=== PATIENT | female | born 1965 | race Caucasian/White ===

== ENCOUNTER 2016-09-30 23:14 | Emergency (ER) | payer OTHER ==
--- NOTE | 2016-10-01 01:02 | ED NURSING NOTES ---
Clinical Report - Nurses [facility] [address] [place] [address] 09/30/2016 23:15 [id number] Triage time 23:41 Sep 30 2016. Acuity: LEVEL 4. Chief Complaint: CAT BITE. Alert. No acute distress. OCOPER COMA SCORE: Cooper Coma Scale: 15- eyes open spontaneously (4); best verbal response- oriented x 4 (5); best motor response- obeys commands (6). --23:48 Brooke Cameron R.N. 23:41 09/30/16. BP: 150/74. HR: 82. RR: 18. O2 saturation: 99%. Temp: 98.2 F. Pain level now 4/10. --23:48 Brooke Cameron R.N. Weight: 108.8 kg stated. Height/Length: 67 inches Per Patient. BMI: 37.6. --23:41 Brooke Cameron R.N. Medications Cholesterol Defense Oral (at night). Percocet Oral. --23:43 Brooke Cameron R.N. Lisinopril Oral 40 mg, daily. --23:45 Brooke Cameron R.N. BP med at night. --23:46 Brooke Cameron R.N. Nortriptyline HCl Oral 100mg at night. --23:46 Brooke Cameron R.N. Medication/allergy information source: the patient. --23:48 Brooke Cameron R.N. Allergies Wellbutrin.(itching) (inside of mouth) --23:43 Brooke Cameron R.N. Gabapentin. (intolerance maybe, slept for 24 hours and was "out of it") --23:43 Brooke Cameron R.N. History Arrived by private vehicle. Historian: patient. Primary physician (Tony Cervantes). ( Cat Bite to Right Hand OPS MANAGER. Pt washed it out with water. This is the patients own cat.). Location of injuries: right hand. This occurred just prior to arrival. Circumstances: This was an "unprovoked" attack. The appearance of the animal is unknown and the animal reportedly is up to date on immunizations. Treatment OPS MANAGER: None. PAST MEDICAL HX: Tetanus status: up-to-date. Denies current . SOCIAL HX: Current every day heavy tobacco smoker (cigarette)- 1 pack per day. Occasional alcohol use. History of drug use: marijuana. No infectious disease exposure. FALL RISK ASSESSMENT: Fall risk assessment completed. No fall risk identified. NUTRITIONAL RISK ASSESSMENT: The nutritional risk assessment revealed no deficiencies. FUNCTIONAL ASSESSMENT: Functional assessment: no impairments noted. LEARNING NEEDS ASSESSMENT: The learning needs assessment revealed no barriers. SKIN INTEGRITY ASSESSMENT: Skin integrity risk assessment completed. No skin integrity risk identified. --23:48 Brooke Cameron R.N. PROBLEMS: Soft Tissue Foreign Body. Hypertension. Tetanus Status. --23:46 Brooke Cameron R.N. ADDITIONAL SURGERIES: Back Surgery. Hip Surgery. --23:46 Brooke Cameron R.N. Interventions ID band on patient. To room. --23:48 Brooke Cameron R.N. PHYSICAL ASSESSMENT Ambulatory to room. GENERAL / NEURO / PSYCH: Oriented X 4. Appears in no acute distress. RESPIRATORY: Respirations not labored. SKIN: ( multiple small bites to the right thumb and index finger area and the webbing in between the fingers of this area.). --00:56 Brooke Cameron R.N. NURSING PROGRESS NOTES Patient ready for evaluation- chart flagged and ED physician notified. --23:48 Brooke Cameron R.N. 00:09 10/01/2016 Unasyn 1.5GM IM 1.5 gm given. Given in the right deltoid and left deltoid (split dose). --00:09 Brooke Cameron R.N. Wound cleansed with Hibiclens. Applied bulky dressing, following the application of antibiotic ointment (bacitracin). Secured with tape. --00:56 Brooke Cameron R.N. The patient has had no adverse reaction. --01:13 Brooke Cameron R.N. DISPOSITION / DISCHARGE 00:56 10/01/16. BP: 143/71. HR: 77. RR: 18. O2 saturation: 98%. Pain level now 11/26. --00:57 Brooke Cameron R.N. Condition at departure: improved and stable. No learning barriers present. Discharge instructions provided and reviewed with the patient. The patient was discharged by the physician. She was discharged home and accompanied by family. She left the Emergency Department ambulatory and via private vehicle. Family member driving. --01:13 Brooke Cameron R.N. Departure time: 01:13 Oct 01 2016. --01:13 Brooke Cameron R.N. Locked/Released at 10/01/2016 1:13 by Brooke Cameron R.N.
--- NOTE | 2016-10-01 01:02 | ED CLINICAL REPORT ---
Clinical Report - Physicians/Mid Levels [facility] [address] [place] [address] 09/30/2016 23:15 Patient: KATY GUPTA Time Seen: 23:37; initial patient contact. Arrived- By private vehicle. Historian- patient. HISTORY OF PRESENT ILLNESS Chief Complaint: CAT BITE. Location of injuries- left hand. The injury occurred just prior to arrival. The animal reportedly appeared well, is up to date on immunizations and can be observed for ten days. Occurred at home. This was a "provoked" attack. The patient has had swelling. She has not had drainage. REVIEW OF SYSTEMS The patient has had swelling. No numbness. All systems otherwise negative, except as recorded above. PAST HISTORY Soft Tissue Foreign Body. Hypertension. ADDITIONAL SURGERIES: Back Surgery. Hip Surgery. Medications: Nortriptyline HCl Oral 100mg at night. BP med at night. Lisinopril Oral 40 mg, daily. Cholesterol Defense Oral (at night). Percocet Oral. Allergies: Gabapentin. (intolerance maybe, slept for 24 hours and was "out of it") Wellbutrin.(itching) (inside of mouth). SOCIAL HISTORY Current every day smoker. Occasional alcohol use. History of drug use: marijuana. PHYSICAL EXAM Appearance: Alert. Oriented X3. No acute distress. Head: Head normal on inspection. Eyes: Eyes normal inspection. CVS: Heart sounds normal. Respiratory: No respiratory distress. Breath sounds normal. Skin: Skin warm and dry. Normal skin color. Extremities: Dorsal left hand: mild erythema, tenderness and swelling and multiple puncture wounds of the central and radial aspect of the dorsal hand. Neurovascular intact distally. No limitation of extension. PROGRESS AND PROCEDURES Disposition: Discharged home in good and improved condition. CLINICAL IMPRESSION Single deep cat bite to the left hand. INSTRUCTIONS Warnings: INFECTION: Watch for signs of infection (increasing heat and redness, pus-like drainage, swelling, or increased pain). Return or see your doctor if these signs occur. TETANUS: You were given a tetanus shot during your visit. Make a note for future reference. Your Current Medications: CONTINUE TAKING THE FOLLOWING MEDICATIONS: BP med at night*. Cholesterol Defense Oral : at night. Lisinopril Oral : 40 mg daily. Nortriptyline HCl Oral : 100mg at night. Percocet Oral. Prescription Medications: Augmentin 875 mg: take 1 tablet orally every 12 hours for 7 days. Substitution is permissible. Follow-up: Follow up with your doctor in about two days. Call for an appointment. Blood pressure screening was not performed during this visit because the patient has an active diagnosis of hypertension. The patient should follow up with a primary care provider for blood pressure management. (Electronically signed by Ady Albarado Dr. 10/01/2016 1:04)
--- NOTE | 2016-10-01 01:02 | ED NURSING NOTES ---
Clinical Report - Nurses [facility] [address] [place] [address] 09/30/2016 23:15 [id number] TRI[facility] Triage time 23:41 Sep 30 2016. Acuity: LEVEL 4. Chief Complaint: CAT BITE. Alert. No acute distress. COOPER COMA SCORE: Cooper Coma Scale: 15- eyes open spontaneously (4); best verbal response- oriented x 4 (5); best motor response- obeys commands (6). --23:48 Brooke Cameron R.N. 23:41 09/30/16. BP: 150/74. HR: 82. RR: 18. O2 saturation: 99%. Temp: 98.2 F. Pain level now 4/10. --23:48 Brooke Cameron R.N. Weight: 108.8 kg stated. Height/Length: 67 inches Per Patient. BMI: 37.6. --23:41 Brooke Cameron R.N. Medications Cholesterol Defense Oral (at night). Percocet Oral. --23:43 Brooke Cameron R.N. Lisinopril Oral 40 mg, daily. --23:45 Brooke Cameron R.N. BP med at night. --23:46 Brooke Cameron R.N. Nortriptyline HCl Oral 100mg at night. --23:46 Brooke Cameron R.N. Medication/allergy information source: the patient. --23:48 Brooke Cameron R.N. Allergies Wellbutrin.(itching) (inside of mouth) --23:43 Brooke Cameron R.N. Gabapentin. (intolerance maybe, slept for 24 hours and was "out of it") --23:43 Brooke Cameron R.N. History Arrived by private vehicle. Historian: patient. Primary physician (Tony Cervantes). ( Cat Bite to Right Hand SELLING MANAGER. Pt washed it out with water. This is the patients own cat.). Location of injuries: right hand. This occurred just prior to arrival. Circumstances: This was an "unprovoked" attack. The appearance of the animal is unknown and the animal reportedly is up to date on immunizations. Treatment SELLING MANAGER: None. PAST MEDICAL HX: Tetanus status: up-to-date. Denies current . SOCIAL HX: Current every day heavy tobacco smoker (cigarette)- 1 pack per day. Occasional alcohol use. History of drug use: marijuana. No infectious disease exposure. FALL RISK ASSESSMENT: Fall risk assessment completed. No fall risk identified. NUTRITIONAL RISK ASSESSMENT: The nutritional risk assessment revealed no deficiencies. FUNCTIONAL ASSESSMENT: Functional assessment: no impairments noted. LEARNING NEEDS ASSESSMENT: The learning needs assessment revealed no barriers. SKIN INTEGRITY ASSESSMENT: Skin integrity risk assessment completed. No skin integrity risk identified. --23:48 Brooke Cameron R.N. PROBLEMS: Soft Tissue Foreign Body. Hypertension. Tetanus Status. --23:46 Brooke Cameron R.N. ADDITIONAL SURGERIES: Back Surgery. Hip Surgery. --23:46 Brooke Cameron R.N. Interventions ID band on patient. To room. --23:48 Brooke Cameron R.N. PHYSICAL ASSESSMENT Ambulatory to room. GENERAL / NEURO / PSYCH: Oriented X 4. Appears in no acute distress. RESPIRATORY: Respirations not labored. SKIN: ( multiple small bites to the right thumb and index finger area and the webbing in between the fingers of this area.). --00:56 Brooke Cameron R.N. NURSING PROGRESS NOTES Patient ready for evaluation- chart flagged and ED physician notified. --23:48 Brooke Cameron R.N. 00:09 10/01/2016 Unasyn 1.5GM IM 1.5 gm given. Given in the right deltoid and left deltoid (split dose). --00:09 Brooke Cameron R.N. Wound cleansed with Hibiclens. Applied bulky dressing, following the application of antibiotic ointment (bacitracin). Secured with tape. --00:56 Brooke Cameron R.N. The patient has had no adverse reaction. --01:13 Brooke Cameron R.N. DISPOSITION / DISCHARGE 00:56 10/01/16. BP: 143/71. HR: 77. RR: 18. O2 saturation: 98%. Pain level now 11/26. --00:57 Brooke Cameron R.N. Condition at departure: improved and stable. No learning barriers present. Discharge instructions provided and reviewed with the patient. The patient was discharged by the physician. She was discharged home and accompanied by family. She left the Emergency Department ambulatory and via private vehicle. Family member driving. --01:13 Brooke Cameron R.N. Departure time: 01:13 Oct 01 2016. --01:13 Brooke Cameron R.N. Locked/Released at 10/01/2016 1:13 by Brooke Cameron R.N.
--- NOTE | 2016-10-01 01:02 | ED CLINICAL REPORT ---
Clinical Report - Physicians/Mid Levels [facility] [address] [place] [address] 09/30/2016 23:15 Patient: KATY GUPTA Time Seen: 23:37; initial patient contact. Arrived- By private vehicle. Historian- patient. HISTORY OF PRESENT ILLNESS Chief Complaint: CAT BITE. Location of injuries- left hand. The injury occurred just prior to arrival. The animal reportedly appeared well, is up to date on immunizations and can be observed for ten days. Occurred at home. This was a "provoked" attack. The patient has had swelling. She has not had drainage. REVIEW OF SYSTEMS The patient has had swelling. No numbness. All systems otherwise negative, except as recorded above. PAST HISTORY Soft Tissue Foreign Body. Hypertension. ADDITIONAL SURGERIES: Back Surgery. Hip Surgery. Medications: Nortriptyline HCl Oral 100mg at night. BP med at night. Lisinopril Oral 40 mg, daily. Cholesterol Defense Oral (at night). Percocet Oral. Allergies: Gabapentin. (intolerance maybe, slept for 24 hours and was "out of it") Wellbutrin.(itching) (inside of mouth). SOCIAL HISTORY Current every day smoker. Occasional alcohol use. History of drug use: marijuana. PHYSICAL EXAM Appearance: Alert. Oriented X3. No acute distress. Head: Head normal on inspection. Eyes: Eyes normal inspection. CVS: Heart sounds normal. Respiratory: No respiratory distress. Breath sounds normal. Skin: Skin warm and dry. Normal skin color. Extremities: Dorsal left hand: mild erythema, tenderness and swelling and multiple puncture wounds of the central and radial aspect of the dorsal hand. Neurovascular intact distally. No limitation of extension. PROGRESS AND PROCEDURES Disposition: Discharged home in good and improved condition. CLINICAL IMPRESSION Single deep cat bite to the left hand. INSTRUCTIONS Warnings: INFECTION: Watch for signs of infection (increasing heat and redness, pus-like drainage, swelling, or increased pain). Return or see your doctor if these signs occur. TETANUS: You were given a tetanus shot during your visit. Make a note for future reference. Your Current Medications: CONTINUE TAKING THE FOLLOWING MEDICATIONS: BP med at night*. Cholesterol Defense Oral : at night. Lisinopril Oral : 40 mg daily. Nortriptyline HCl Oral : 100mg at night. Percocet Oral. Prescription Medications: Augmentin 875 mg: take 1 tablet orally every 12 hours for 7 days. Substitution is permissible. Follow-up: Follow up with your doctor in about two days. Call for an appointment. Blood pressure screening was not performed during this visit because the patient has an active diagnosis of hypertension. The patient should follow up with a primary care provider for blood pressure management. (Electronically signed by Ady Albarado Dr. 10/01/2016 1:04)
--- NOTE | 2016-10-01 01:03 | ED ORDER SUMMARY ---
..... Patient: KATY GUPTA OrderSheet [facility] VisitID: [id number] [address] [place] [address] 51y, F Registration Date/Time: 09/30/2016 ORDER SHEET Weight: 108.8 kg (stated) Allergies: Wellbutrin, Gabapentin GENERAL ORDERS: MEDICATION ORDERS: - (Unasyn 1.5 grams IM x 1 now) (23:53 09/30/2016 Leroy Lan) (0:09 Ruslan Lara) IV FLUIDS: ORDER SHEET NOTES: [Electronically signed by Ady Albarado Dr. (01:04 10/01/2016)] [Electronically signed by Brooke Cameron R.N. (01:10/01/2016)] [Electronically locked/signed by Brooke Cameron R.N. (01:10/01/2016)]
--- NOTE | 2016-10-01 01:03 | ED ORDER SUMMARY ---
..... Patient: KATY GUPTA OrderSheet [facility] VisitID: [id number] [address] [place] [address] 51y, F Registration Date/Time: 09/30/2016 ORDER SHEET Weight: 108.8 kg (stated) Allergies: Wellbutrin, Gabapentin GENERAL ORDERS: MEDICATION ORDERS: - (Unasyn 1.5 grams IM x 1 now) (23:53 09/30/2016 Leroy Lan) (0:09 Ruslan Lara) IV FLUIDS: ORDER SHEET NOTES: [Electronically signed by Ady Albarado Dr. (01:04 10/01/2016)] [Electronically signed by Brooke Cameron R.N. (01:10/01/2016)] [Electronically locked/signed by Brooke Cameron R.N. (01:10/01/2016)]
--- NOTE | 2016-10-01 01:14 | ED MAR SUMMARY ---
..... Medication Administration Record [facility] [address] [place] [address] Patient: KATY GUPTA Visit ID: [id number] 51y, F Weight: 108.8 kg Height/Length: 67 in BMI: 37.6 ALLERGIES: Gabapentin, Wellbutrin Given 00:09 10/01/2016 Brooke Cameron R.N. Medication Administered: UNASYN 1.5GM [IM], Dose: 1.5 gm IM. Medication Ordered: - (Unasyn 1.5 grams IM x 1 now).
--- NOTE | 2016-10-01 01:14 | ED MAR SUMMARY ---
..... Medication Administration Record [facility] [address] [place] [address] Patient: KATY GUPTA Visit ID: [id number] 51y, F Weight: 108.8 kg Height/Length: 67 in BMI: 37.6 ALLERGIES: Gabapentin, Wellbutrin Given 00:09 10/01/2016 Brooke Cameron R.N. Medication Administered: UNASYN 1.5GM [IM], Dose: 1.5 gm IM. Medication Ordered: - (Unasyn 1.5 grams IM x 1 now).
--- NOTE | 2016-10-01 01:14 | ED MED RECONCILIATION SUMMARY ---
Patient: KATY GUPTA Medication Reconciliation Report [facility] VisitID: [id number] [address] [place] [address] 51y, F Registration Date/Time: 09/30/2016 Weight: 108.8 kg Height/Length: 67 in. BMI: 37.6 ALLERGIES: Gabapentin, Wellbutrin The patient's Home Medications are listed below: CONTINUE TAKING THE FOLLOWING MEDICATIONS: BP med at night Cholesterol Defense Oral, at night Lisinopril Oral 40 mg, daily Nortriptyline HCl Oral 100mg at night Percocet Oral The source(s) of the original Home Medication information: patient The following Medications were given to the patient in the Emergency Department: Unasyn 1.5GM [IM] IM 1.5 gm, administered: 10/01/2016 12:09:00 AM The following Medications were prescribed to the patient: Augmentin 875 mg: take 1 tablet orally every 12 hours for 7 days. Substitution is permissible. -- dAy Albarado Dr.
--- NOTE | 2016-10-01 01:14 | ED MED RECONCILIATION SUMMARY ---
Patient: KATY GUPTA Medication Reconciliation Report [facility] VisitID: [id number] [address] [place] [address] 51y, F Registration Date/Time: 09/30/2016 Weight: 108.8 kg Height/Length: 67 in. BMI: 37.6 ALLERGIES: Gabapentin, Wellbutrin The patient's Home Medications are listed below: CONTINUE TAKING THE FOLLOWING MEDICATIONS: BP med at night Cholesterol Defense Oral, at night Lisinopril Oral 40 mg, daily Nortriptyline HCl Oral 100mg at night Percocet Oral The source(s) of the original Home Medication information: patient The following Medications were given to the patient in the Emergency Department: Unasyn 1.5GM [IM] IM 1.5 gm, administered: 10/01/2016 12:09:00 AM The following Medications were prescribed to the patient: Augmentin 875 mg: take 1 tablet orally every 12 hours for 7 days. Substitution is permissible. -- Ady Albarado Dr.
--- NOTE | 2016-10-01 01:14 | ED DISCHARGE INSTRUCTIONS ---
Patient: AKTY GUPTA General Instructions [facility] VisitID: [id number] [place] [address] 51y, F Registration Date/Time: 09/30/2016 Single deep cat bite to the left hand. INSTRUCTIONS Warnings: INFECTION: Watch for signs of infection (increasing heat and redness, pus-like drainage, swelling, or increased pain). Return or see your doctor if these signs occur. TETANUS: You were given a tetanus shot during your visit. Make a note for future reference. Your Current Medications: CONTINUE TAKING THE FOLLOWING MEDICATIONS: BP med at night*. Cholesterol Defense Oral : at night. Lisinopril Oral : 40 mg daily. Nortriptyline HCl Oral : 100mg at night. Percocet Oral. Prescription Medications: Augmentin 875 mg: take 1 tablet orally every 12 hours for 7 days. Substitution is permissible. Follow-up: Follow up with your doctor in about two days. Call for an appointment. Blood pressure screening was not performed during this visit because the patient has an active diagnosis of hypertension. The patient should follow up with a primary care provider for blood pressure management. ADDITIONAL INFORMATION Animal Bite, General If you have been bitten by an animal and the wound is deep enough to break the skin, an infection may occur. Therefore, watch for the warning signs listed below. If a cut (laceration) was present, the doctor may not close the wound completely. This is to allow fluid to drain in the event of an infection. Home Care: Watch the wound for signs of infection listed below which may begin within6 hours after the bite and progress rapidly. In certain types of bites, antibiotics may be prescribed. Begin taking these as soon as possible until they are all gone. Rabies Prevention If you live in an area where rabies occurs in the wild animals, if you were bitten by a dog, cat, skunk, raccoon, pelayo, coyote, bobcat, woodchuck, bat, or other meat-eating animal, there may be some risk to you of getting the rabies virus. If a healthy-looking pet dog or cat has bitten you, it should be kept in a secure area for the next 10 days to watch for signs of illness. (If the pet nurses medical assistants phlebotomists wont cooperate with you, contact the animal control department.) If the dog or cat becomes ill or dies during that time, contact your [facility] animal control department at once so the animal may be tested for rabies. If the pet stays healthy for the next10 days, there is no danger of rabies in the animal or you. Pets fully vaccinated against rabies (2 shots) are at very low risk of infection; however, because human rabies is almost always fatal,any biting pet should be confined for10 days as an extra precaution. If astray pet bit you, contact the animal control department. They can provide information on capture, quarantine, and animal rabies testing. If you are unable to locate the animal that bit you in the next2 days, and if rabies exists in your region, you must be evaluated for the rabies vaccine series. Contact your doctor or return here promptly. All animal bites should be reported to the [facility] animal control department. If you were not given a form to fill out, you can report this yourself. Follow Up with your doctor or this facility as directed. Most skin wounds heal [id number] days. However, an infection may occur even with proper treatment. Check your wound every 6 hours for the first 2 days, then at least once a day for the next several days for the signs of infection listed below. Get Prompt Medical Attention if any of the following occur: Signs of infection: Spreading redness from the wound Increased pain or swelling Fever of 100.4F (38C) or higher, or as directed by your healthcare provider Colored fluid or pus draining from the wound Headache, confusion, strange behavior, or seizure (signs of a rabies infection) Cat Bite If a cat has bitten you and the wound is deep enough to break the skin, an infection may occur. Therefore, watch for the warning signs listed below. The doctor may not close the wound completely. This allows fluid to drain in the event of an infection. Home Care Watch the wound for signs of infection listed below, which may begin within6 hours after the bite and progress rapidly. If antibiotics were prescribed, begin taking them as soon as possible. Take these as directed until they are all gone. Rabies Prevention If you live in an area where rabies occurs in wild animals, the rabies virus can be passed to cats and dogs. An infected animal can pass the virus to you during a bite. If ahealthy-looking pet cat has bitten you, it should be kept in a secure area for the next 10 days to watch for signs of illness. If the pets nurses medical assistants phlebotomists wont cooperate with you, contact the [facility] animal control department (or local law enforcement). If the animal becomes ill or dies within 10 days, contact your [facility] animal control department at once. The animal must be tested for rabies. If the animal stays healthy for the next10 days, then there is no danger of rabies in the cat or you. Pets fully vaccinated against rabies (2 shots) are at very low risk for the infection. However, because human rabies is usually fatal, any biting pet cat should be confined for 10 days as an extra precaution. If a stray cat has bitten you, contact the [facility] They can provide information on capture, quarantine, and animal rabies testing. If you are unable to locate the animal that bit you in the next2 days, you must be evaluated for the rabies vaccination series within 3days after the bite. Contact your doctor or return to this facility promptly, to arrange this. All animal bites should be reported to your [facility] animal control department. If you were not given a form to fill out, call the [facility] animal control department to report it yourself. Follow Up with your doctor or this facility as directed. Most skin wounds heal within 10 days. However, an infection may occur even with proper treatment. Check your wound every 6 hours for the first 2 days, then at least once a day for the next few days for the signs of infection listed below. Get Prompt Medical Attention if any of the following occur: Signs of infection: Spreading redness Increased pain or swelling Fever of 100.4F (37C) or higher, or as directed by your healthcare provider Colored fluid or pus draining from the wound The biting animal becomes sick or dies Headache, confusion, strange behavior, or a seizure (signs of a rabies infection) Amoxicillin Trihydrate, Clavulanate Potassium Oral tablet What is this medicine? AMOXICILLIN; CLAVULANIC ACID (a mox i CHRISTINA in; HARI tsang ic id) is a penicillin antibiotic. It is used to treat certain kinds of bacterial infections. It will not work for colds, flu, or other viral infections. How should I use this medicine? Take this medicine by mouth with a full glass of water. Follow the directions on the prescription label. Take at the start of a meal. Do not crush or chew. If the tablet has a score line, you may cut it in half at the score line for easier swallowing. Take your medicine at regular intervals. Do not take your medicine more often than directed. Take all of your medicine as directed even if you think you are better. Do not skip doses or stop your medicine early. Talk to your insole presser regarding the use of this medicine in children. Special care may be needed. What side effects may I notice from receiving this medicine? Side effects that you should report to your doctor or health care transitions manager as soon as possible: allergic reactions like skin rash, itching or hives, swelling of the face, lips, or tongue breathing problems dark urine fever or chills, sore throat redness, blistering, peeling or loosening of the skin, including inside the mouth seizures trouble passing urine or change in the amount of urine unusual bleeding, bruising unusually weak or tired white patches or sores in the mouth or throat Side effects that usually do not require medical attention (report to your doctor or health care transitions manager if they continue or are bothersome): diarrhea dizziness headache nausea, vomiting stomach upset vaginal or anal irritation What may interact with this medicine? allopurinol anticoagulants control pills methotrexate probenecid What if I miss a dose? If you miss a dose, take it as soon as you can. If it is almost time for your next dose, take only that dose. Do not take double or extra doses. Where should I keep my medicine? Keep out of the reach of children. Store at room temperature below 25 degrees C (77 degrees F). Keep container tightly closed. Throw away any unused medicine after the expiration date. What should I tell my health care provider before I take this medicine? They need to know if you have any of these conditions: bowel disease, like colitis kidney disease liver disease mononucleosis an unusual or allergic reaction to amoxicillin, penicillin, cephalosporin, other antibiotics, clavulanic acid, other medicines, foods, dyes, or preservatives or trying to get breast-feeding What should I watch for while using this medicine? Tell your doctor or health care transitions manager if your symptoms do not improve. Do not treat diarrhea with over the counter products. Contact your doctor if you have diarrhea that lasts more than 2 days or if it is severe and watery. If you have diabetes, you may get a false-positive result for sugar in your urine. Check with your doctor or health care transitions manager. control pills may not work properly while you are taking this medicine. Talk to your doctor about using an extra method of control. You have been given the following additional information: Animal Bite, General Cat Bite Amoxicillin Trihydrate, Clavulanate Potassium Oral tablet (Electronically signed by Ady Albarado Dr. 10/01/2016 1:04)
--- NOTE | 2016-10-01 01:14 | ED DISCHARGE INSTRUCTIONS ---
Patient: KATY GUPTA General Instructions [facility] VisitID: [id number] [place] [address] 51y, F Registration Date/Time: 09/30/2016 Single deep cat bite to the left hand. INSTRUCTIONS Warnings: INFECTION: Watch for signs of infection (increasing heat and redness, pus-like drainage, swelling, or increased pain). Return or see your doctor if these signs occur. TETANUS: You were given a tetanus shot during your visit. Make a note for future reference. Your Current Medications: CONTINUE TAKING THE FOLLOWING MEDICATIONS: BP med at night*. Cholesterol Defense Oral : at night. Lisinopril Oral : 40 mg daily. Nortriptyline HCl Oral : 100mg at night. Percocet Oral. Prescription Medications: Augmentin 875 mg: take 1 tablet orally every 12 hours for 7 days. Substitution is permissible. Follow-up: Follow up with your doctor in about two days. Call for an appointment. Blood pressure screening was not performed during this visit because the patient has an active diagnosis of hypertension. The patient should follow up with a primary care provider for blood pressure management. ADDITIONAL INFORMATION Animal Bite, General If you have been bitten by an animal and the wound is deep enough to break the skin, an infection may occur. Therefore, watch for the warning signs listed below. If a cut (laceration) was present, the doctor may not close the wound completely. This is to allow fluid to drain in the event of an infection. Home Care: Watch the wound for signs of infection listed below which may begin within6 hours after the bite and progress rapidly. In certain types of bites, antibiotics may be prescribed. Begin taking these as soon as possible until they are all gone. Rabies Prevention If you live in an area where rabies occurs in the wild animals, if you were bitten by a dog, cat, skunk, raccoon, pelayo, coyote, bobcat, woodchuck, bat, or other meat-eating animal, there may be some risk to you of getting the rabies virus. If a healthy-looking pet dog or cat has bitten you, it should be kept in a secure area for the next 10 days to watch for signs of illness. (If the pet linotype mechanic wont cooperate with you, contact the animal control department.) If the dog or cat becomes ill or dies during that time, contact your [facility] animal control department at once so the animal may be tested for rabies. If the pet stays healthy for the next10 days, there is no danger of rabies in the animal or you. Pets fully vaccinated against rabies (2 shots) are at very low risk of infection; however, because human rabies is almost always fatal,any biting pet should be confined for10 days as an extra precaution. If astray pet bit you, contact the animal control department. They can provide information on capture, quarantine, and animal rabies testing. If you are unable to locate the animal that bit you in the next2 days, and if rabies exists in your region, you must be evaluated for the rabies vaccine series. Contact your doctor or return here promptly. All animal bites should be reported to the [facility] animal control department. If you were not given a form to fill out, you can report this yourself. Follow Up with your doctor or this facility as directed. Most skin wounds heal [id number] days. However, an infection may occur even with proper treatment. Check your wound every 6 hours for the first 2 days, then at least once a day for the next several days for the signs of infection listed below. Get Prompt Medical Attention if any of the following occur: Signs of infection: Spreading redness from the wound Increased pain or swelling Fever of 100.4F (38C) or higher, or as directed by your healthcare provider Colored fluid or pus draining from the wound Headache, confusion, strange behavior, or seizure (signs of a rabies infection) Cat Bite If a cat has bitten you and the wound is deep enough to break the skin, an infection may occur. Therefore, watch for the warning signs listed below. The doctor may not close the wound completely. This allows fluid to drain in the event of an infection. Home Care Watch the wound for signs of infection listed below, which may begin within6 hours after the bite and progress rapidly. If antibiotics were prescribed, begin taking them as soon as possible. Take these as directed until they are all gone. Rabies Prevention If you live in an area where rabies occurs in wild animals, the rabies virus can be passed to cats and dogs. An infected animal can pass the virus to you during a bite. If ahealthy-looking pet cat has bitten you, it should be kept in a secure area for the next 10 days to watch for signs of illness. If the pets linotype mechanic wont cooperate with you, contact the [facility] animal control department (or local law enforcement). If the animal becomes ill or dies within 10 days, contact your [facility] animal control department at once. The animal must be tested for rabies. If the animal stays healthy for the next10 days, then there is no danger of rabies in the cat or you. Pets fully vaccinated against rabies (2 shots) are at very low risk for the infection. However, because human rabies is usually fatal, any biting pet cat should be confined for 10 days as an extra precaution. If a stray cat has bitten you, contact the [facility]. They can provide information on capture, quarantine, and animal rabies testing. If you are unable to locate the animal that bit you in the next2 days, you must be evaluated for the rabies vaccination series within 3days after the bite. Contact your doctor or return to this facility promptly, to arrange this. All animal bites should be reported to your [facility] animal control department. If you were not given a form to fill out, call the [facility] animal control department to report it yourself. Follow Up with your doctor or this facility as directed. Most skin wounds heal within 10 days. However, an infection may occur even with proper treatment. Check your wound every 6 hours for the first 2 days, then at least once a day for the next few days for the signs of infection listed below. Get Prompt Medical Attention if any of the following occur: Signs of infection: Spreading redness Increased pain or swelling Fever of 100.4F (37C) or higher, or as directed by your healthcare provider Colored fluid or pus draining from the wound The biting animal becomes sick or dies Headache, confusion, strange behavior, or a seizure (signs of a rabies infection) Amoxicillin Trihydrate, Clavulanate Potassium Oral tablet What is this medicine? AMOXICILLIN; CLAVULANIC ACID (a mox i CHRISTINA in; HARI tsang ic id) is a penicillin antibiotic. It is used to treat certain kinds of bacterial infections. It will not work for colds, flu, or other viral infections. How should I use this medicine? Take this medicine by mouth with a full glass of water. Follow the directions on the prescription label. Take at the start of a meal. Do not crush or chew. If the tablet has a score line, you may cut it in half at the score line for easier swallowing. Take your medicine at regular intervals. Do not take your medicine more often than directed. Take all of your medicine as directed even if you think you are better. Do not skip doses or stop your medicine early. Talk to your defence [employer] member other ranks regarding the use of this medicine in children. Special care may be needed. What side effects may I notice from receiving this medicine? Side effects that you should report to your doctor or health customer care agent as soon as possible: allergic reactions like skin rash, itching or hives, swelling of the face, lips, or tongue breathing problems dark urine fever or chills, sore throat redness, blistering, peeling or loosening of the skin, including inside the mouth seizures trouble passing urine or change in the amount of urine unusual bleeding, bruising unusually weak or tired white patches or sores in the mouth or throat Side effects that usually do not require medical attention (report to your doctor or health customer care agent if they continue or are bothersome): diarrhea dizziness headache nausea, vomiting stomach upset vaginal or anal irritation What may interact with this medicine? allopurinol anticoagulants control pills methotrexate probenecid What if I miss a dose? If you miss a dose, take it as soon as you can. If it is almost time for your next dose, take only that dose. Do not take double or extra doses. Where should I keep my medicine? Keep out of the reach of children. Store at room temperature below 25 degrees C (77 degrees F). Keep container tightly closed. Throw away any unused medicine after the expiration date. What should I tell my health care provider before I take this medicine? They need to know if you have any of these conditions: bowel disease, like colitis kidney disease liver disease mononucleosis an unusual or allergic reaction to amoxicillin, penicillin, cephalosporin, other antibiotics, clavulanic acid, other medicines, foods, dyes, or preservatives or trying to get breast-feeding What should I watch for while using this medicine? Tell your doctor or health customer care agent if your symptoms do not improve. Do not treat diarrhea with over the counter products. Contact your doctor if you have diarrhea that lasts more than 2 days or if it is severe and watery. If you have diabetes, you may get a false-positive result for sugar in your urine. Check with your doctor or health customer care agent. control pills may not work properly while you are taking this medicine. Talk to your doctor about using an extra method of control. You have been given the following additional information: Animal Bite, General Cat Bite Amoxicillin Trihydrate, Clavulanate Potassium Oral tablet (Electronically signed by Ady Albarado Dr. 10/01/2016 1:04)
== END 2016-10-01 01:15 | disposition home or self-care (01) ==
LOC: ED SRH 23:14
DX: S61.452A Open bite of left hand, initial encounter (principal); W55.01XA Bitten by cat, initial encounter; Y93.9 Activity, unspecified; Y92.009 Unspecified place in unspecified non-institutional (private) residence as the place of occurrence of the external cause; Y99.9 Unspecified external cause status; I10 Essential (primary) hypertension; Z79.899 Other long term (current) drug therapy; Z88.8 Allergy status to other drugs, medicaments and biological substances